=== PATIENT | male | born 1990 | race Caucasian/White ===

== ENCOUNTER 2018-04-24 21:31 | Emergency (ER) | payer OTHER ==
[~2018-04-24] VITALS: Ht 172.7 cm; Wt 95.6 kg
[2018-04-24 21:57] LABS: HEMOGLOBIN 15.9 G/DL (12.5-16.6); MCH 29.1 PG (29.0-34.0); MCHC 34.6 G/DL (30.0-36.0); MCV 84.1 FL (86-99); PLATELET COUNT 247 K/uL (156-360); RBC DIS.WIDTH-CV 12.3 % (11.8-14.6); RBC DIS.WIDTH-SD 37.4 % (39-53); RED BLOOD COUNT 5.47 M/uL (4.00-5.50); WHITE BLOOD COUNT 8.2 K/uL (4.1-10.2)
[2018-04-24 22:15] LABS: CHLORIDE 99 mEq/L (99-109); POTASSIUM 3.7 mEq/L (3.7-5.4); SODIUM 141 mEq/L (136-147)
[2018-04-24 22:16] LABS: GLUCOSE 130 mg/dL (70-99)
[2018-04-24 22:20] LABS: GFR ESTIMATE (CALCULATED) > 59 mL/min/ (58.99-99999); TROP-I INTERPRETATION NEGATIVE; TROPONIN-I < 0.01 ng/mL (0.0-0.30)
[2018-04-24 22:21] LABS: UREA NITROGEN (BUN) 12 mg/dL (9-23)
[2018-04-24 22:47] LABS: MAGNESIUM 2.4 mg/dL (1.3-2.7)
[2018-04-24 23:16] LABS: D-DIMER ELISA < 150.00 ng/mLDDU (<230); ERTH.SED.RATE 5 MM/HR (0-15)
[2018-04-25 00:18] LABS: TROP-I INTERPRETATION NEGATIVE; TROPONIN-I < 0.01 ng/mL (0.0-0.30)
[2018-04-25 00:52] VITALS: BP 127/90
[2018-04-25 08:20] LABS: THYROTROPIN (TSH) 2.9 MIU/L (0.4-5.5)
== END 2018-04-25 00:53 | disposition home or self-care (01) ==
LOC: EME 21:31
PROVIDERS: Emergency Medicine
DX: R07.89 Other chest pain (principal); R00.2 Palpitations; J98.4 Other disorders of lung; R94.31 Abnormal electrocardiogram [ECG] [EKG]; F17.200 Nicotine dependence, unspecified, uncomplicated; Z82.49 Family history of ischemic heart disease and other diseases of the circulatory system
CPT/HCPCS: 71046; 80048; 83735; 84443; 84484; 85027; 85379; 85651; 93005; 99281; 99285